=== PATIENT | male | born 1950 | race Caucasian/White ===

== ENCOUNTER 2019-04-18 10:50 | Inpatient (IN) | payer MEDICARE, OTHER ==
[~2019-04-18] VITALS: Ht 177.8 cm; Wt 97.8 kg
[2019-04-18] MEDS ORDERED: METO25 PO (11:34)
[2019-04-18] MEDS ORDERED: LEVE250T55 PO (11:34)
[2019-04-18] MEDS ORDERED: LEVO100 PO (11:34)
[2019-04-18] MEDS ORDERED: LACT30L PO (11:35)
[2019-04-18 12:35] LABS: MONOCYTES # (AUTO) 0.5 K/uL (0.1-1.0)
[2019-04-18 12:41] LABS: BASOPHILS % (AUTO) 0.9 % (0.0-2.0); HEMOGLOBIN 13.8 g/dL (13.5-17.5); LYMPHOCYTES # (AUTO) 1.1 K/uL (1.0-4.8); MEAN CORPUSCULAR HEMOGLOBIN 32.6 pg (26.0-34.0); MEAN CORPUSCULAR HGB CONC 34.5 G/dL (31.0-37.0); MEAN CORPUSCULAR VOLUME 94 fL (80-100); MONOCYTES % (AUTO) 9.6 % (2.0-9.0); NEUTROPHILS # (AUTO) 3.8 K/uL (1.8-7.7); NEUTROPHILS % (AUTO) 67.5 % (40.0-70.0); RED BLOOD CELL COUNT(AUTO) 4.24 MIL/uL (4.50-5.90); RED CELL DISTRIBUTION WIDTH 14.1 % (11.5-14.5)
[2019-04-18 12:43] LABS: ANION GAP 9 mmol/L (8-16); CALCIUM, TOTAL 9.2 mg/dL (8.8-10.5); CARBON DIOXIDE 28 mmol/L (22-29); CHLORIDE 109 mmol/L (98-107); CREATININE 0.71 mg/dL (0.60-1.30); GLOMERULAR FILTR. RATE CALC > 60 mL/min (>60); GLUCOSE,RANDOM 72 mg/dL (70-110); POTASSIUM 4.5 mmol/L (3.5-5.1); SODIUM SERUM 146 mmol/L (136-145); UREA NITROGEN, BLOOD 21 mg/dL (7-18)
[2019-04-18 12:49] LABS: ALANINE AMINOTRANSFERASE 29 U/L (12-78); ALBUMIN 3.5 g/dL (3.4-5.0); ALKALINE PHOSPHATASE 64 U/L (46-116); ASPARTATE AMINOTRANSFERASE 21 U/L (15-37); BILIRUBIN,TOTAL 0.5 mg/dL (0.1-1.0); CREATINE KINASE, TOTAL ONLY 55 U/L (39-308); TOTAL PROTEIN, SERUM 7.1 g/dL (6.4-8.2)
[2019-04-18 12:59] LABS: PLATELET COUNT (AUTO) 74 K/uL (150-450)
[2019-04-18 13:00] LABS: B-TYPE NATRIURETIC PEPTIDE 30 pg/mL (0-100)
[2019-04-18 13:03] LABS: PROTHROMBIN TIME 10.1 SEC (9.4-11.6)
[2019-04-18] MEDS ORDERED: 0.9% SODIUM CHLORIDE 10 ML SYRINGE IVP PRN (15:00)
[2019-04-18] MEDS ORDERED: ACETAMINOPHEN 325 MG TABLET PO PRN ×2 (15:00→15:30)
[2019-04-18] MEDS ORDERED: MAGNESIUM HYDROXIDE SUSPENSION 30 ML UDCUP PO PRN (15:30)
[2019-04-18] MEDS: ASPIRIN 81 MG CHEWABLE TABLET PO SCH (15:41)
[2019-04-18 16:01] LABS: THYROID STIMULATING HORMONE 0.37 uIU/mL (0.36-3.74)
[2019-04-18] MEDS: HEPARIN SODIUM,PORCINE 5,000 UNITS/ML VIAL SQ SCH (16:38)
[2019-04-18 18:39] LABS: APPEARANCE,URINE CLEAR (CLEAR); BILIRUBIN,URINE NEGATIVE (NEGATIVE); GLUCOSE, URINE (UA) NEGATIVE (NEGATIVE); KETONES,URINE TRACE mg/dL (NEGATIVE); LEUKOCYTE ESTERASE ,URINE NEGATIVE (NEGATIVE); NITRATE,URINE NEGATIVE (NEGATIVE); OCCULT BLOOD,URINE NEGATIVE (NEGATIVE); PH,URINE 6.5 (5.0-8.0); PROTEIN,URINE NEGATIVE (NEGATIVE)
[2019-04-18 18:44] LABS: AMPHET/METH SCREEN,URINE NEGATIVE (NEGATIVE); BARBITURATE SCREEN, URINE NEGATIVE (NEGATIVE); BENZODIAZEPINES SCREEN,URINE NEGATIVE (NEGATIVE); CANNABINOID SCREEN,URINE NEGATIVE (NEGATIVE); COCAINE SCREEN,URINE NEGATIVE (NEGATIVE); METHADONE SCREEN, URINE NEGATIVE (NEGATIVE); OPIATE SCREEN,URINE NEGATIVE (NEGATIVE)
[2019-04-18 18:46] LABS: PHENCYCLIDINE SCREEN,URINE NEGATIVE (NEGATIVE)
[2019-04-18 20:49] VITALS: BP 141/85
[2019-04-18] MEDS: DOCUSATE SODIUM 100 MG CAPSULE PO SCH (21:18)
[2019-04-18] MEDS: LevETIRAcetam 250 MG TABLET PO SCH (21:18)
[2019-04-18] MEDS: ATORVASTATIN CALCIUM 20 MG TABLET PO SCH (21:18)
[2019-04-18] MEDS: METOPROLOL TARTRATE 25 MG TABLET PO SCH (21:19)
[2019-04-18 23:30] VITALS: BP 134/77
[2019-04-19] MEDS: HEPARIN SODIUM,PORCINE 5,000 UNITS/ML VIAL SQ SCH ×4 (02:58→23:07)
[2019-04-19 04:59] VITALS: BP 117/66
[2019-04-19 07:08] LABS: BASOPHILS % (AUTO) 0.8 % (0.0-2.0); EOSINOPHILS % (AUTO) 2.1 % (1.0-6.0); HEMATOCRIT 36.3 % (41-53); HEMOGLOBIN 12.7 g/dL (13.5-17.5); LYMPHOCYTES # (AUTO) 1.1 K/uL (1.0-4.8); LYMPHOCYTES % (AUTO) 25.7 % (22.0-44.0); MEAN CORPUSCULAR HEMOGLOBIN 32.5 pg (26.0-34.0); MEAN CORPUSCULAR VOLUME 93 fL (80-100); MONOCYTES # (AUTO) 0.4 K/uL (0.1-1.0); MONOCYTES % (AUTO) 8.5 % (2.0-9.0); NEUTROPHILS # (AUTO) 2.7 K/uL (1.8-7.7); NEUTROPHILS % (AUTO) 62.9 % (40.0-70.0); PLATELET COUNT (AUTO) 70 K/uL (150-450); RED BLOOD CELL COUNT(AUTO) 3.91 MIL/uL (4.50-5.90); RED CELL DISTRIBUTION WIDTH 13.7 % (11.5-14.5)
[2019-04-19 07:23] LABS: ANION GAP 7 mmol/L (8-16); CARBON DIOXIDE 27 mmol/L (22-29); CHLORIDE 105 mmol/L (98-107); CREATININE 0.73 mg/dL (0.60-1.30); GLOMERULAR FILTR. RATE CALC > 60 mL/min (>60); GLUCOSE,RANDOM 92 mg/dL (70-110); POTASSIUM 4.3 mmol/L (3.5-5.1); SODIUM SERUM 139 mmol/L (136-145); UREA NITROGEN, BLOOD 17 mg/dL (7-18)
[2019-04-19 07:54] VITALS: BP 141/78
[2019-04-19] MEDS: ASPIRIN 81 MG CHEWABLE TABLET PO SCH (08:04)
[2019-04-19] MEDS: FAMOTIDINE 20 MG TABLET PO SCH (08:04)
[2019-04-19] MEDS: LevETIRAcetam 250 MG TABLET PO SCH ×2 (08:04→20:03)
[2019-04-19] MEDS: METOPROLOL TARTRATE 25 MG TABLET PO SCH ×2 (08:05→20:03)
[2019-04-19] MEDS: DOCUSATE SODIUM 100 MG CAPSULE PO SCH ×2 (08:05→20:02)
[2019-04-19 11:37] VITALS: BP 123/52
[2019-04-19 15:48] VITALS: BP 142/65
[2019-04-19] MEDS: ATORVASTATIN CALCIUM 20 MG TABLET PO SCH (20:03)
[2019-04-19 20:08] VITALS: BP 130/60
[2019-04-19 23:40] VITALS: BP 114/59
[2019-04-20 04:40] VITALS: BP 112/58
[2019-04-20 07:37] LABS: MAGNESIUM 1.7 mg/dL (1.80-2.40); PHOSPHORUS 3.6 mg/dL (2.5-4.9)
[2019-04-20] MEDS: LevETIRAcetam 250 MG TABLET PO SCH ×2 (07:51→20:59)
[2019-04-20] MEDS: MULTIVITAMINS WITH MINERALS, THERAPEUTIC TABLET PO SCH (07:51)
[2019-04-20] MEDS: ASPIRIN 81 MG CHEWABLE TABLET PO SCH (07:51)
[2019-04-20] MEDS: DOCUSATE SODIUM 100 MG CAPSULE PO SCH ×2 (07:52→20:59)
[2019-04-20] MEDS: METOPROLOL TARTRATE 25 MG TABLET PO SCH ×2 (07:52→20:59)
[2019-04-20] MEDS: HEPARIN SODIUM,PORCINE 5,000 UNITS/ML VIAL SQ SCH ×2 (07:52→15:56)
[2019-04-20] MEDS: FAMOTIDINE 20 MG TABLET PO SCH (07:52)
[2019-04-20 07:58] VITALS: BP 131/66
[2019-04-20 11:14] VITALS: BP 126/58
[2019-04-20] MEDS ORDERED: MAGNESIUM SULFATE 2 GM/WATER 50 ML IV ONE (15:00)
[2019-04-20 15:10] VITALS: BP 143/67
[2019-04-20] MEDS ORDERED: SODIUM CHLORIDE 0.9% 250 ML IV ONE (15:53)
[2019-04-20] MEDS: ATORVASTATIN CALCIUM 20 MG TABLET PO SCH (20:59)
[2019-04-20 23:28] VITALS: BP 132/68
[2019-04-21] MEDS: HEPARIN SODIUM,PORCINE 5,000 UNITS/ML VIAL SQ SCH ×3 (00:26→15:26)
[2019-04-21 00:35] VITALS: BP 132/70
[2019-04-21 04:17] VITALS: BP 136/75
[2019-04-21] MEDS: MULTIVITAMINS WITH MINERALS, THERAPEUTIC TABLET PO SCH (08:09)
[2019-04-21] MEDS: ASPIRIN 81 MG CHEWABLE TABLET PO SCH (08:09)
[2019-04-21] MEDS: METOPROLOL TARTRATE 25 MG TABLET PO SCH (08:09)
[2019-04-21] MEDS: LevETIRAcetam 250 MG TABLET PO SCH (08:09)
[2019-04-21] MEDS: DOCUSATE SODIUM 100 MG CAPSULE PO SCH (08:09)
[2019-04-21] MEDS: FAMOTIDINE 20 MG TABLET PO SCH (08:09)
[2019-04-21 11:29] VITALS: BP 114/57
[2019-04-21 15:31] VITALS: BP 125/65
== END 2019-04-21 20:00 | DRG 641 ==
LOC: EMS 10:53 → 6N 17:33
PROVIDERS: ADMIT Internal Medicine; ATTEND Internal Medicine
DX: R62.7 Adult failure to thrive (principal); I69.354 Hemiplegia and hemiparesis following cerebral infarction affecting left non-dominant side; E03.9 Hypothyroidism, unspecified; D69.6 Thrombocytopenia, unspecified; I25.10 Atherosclerotic heart disease of native coronary artery without angina pectoris; I10 Essential (primary) hypertension; Z89.612 Acquired absence of left leg above knee
CPT/HCPCS: 83735; 84100; 84443; 87081; 93005; 93306; 97163; 97530; G0480; J1644; J3475; J7050

== ENCOUNTER 2019-05-29 07:48 | Inpatient (IN) | payer MEDICARE, OTHER ==
[~2019-05-29] VITALS: Ht 177.8 cm; Wt 97.6 kg
[~2019-05-29 07:48] MED LIST: LACT30L PO; LEVE250T55 PO; LEVO100 PO; METO25 PO
[2019-05-29] MEDS ORDERED: SIMV-46 PO (07:59)
[2019-05-29 08:59] LABS: APPEARANCE,URINE CLEAR (CLEAR); BILIRUBIN,URINE NEGATIVE (NEGATIVE); GLUCOSE, URINE (UA) NEGATIVE (NEGATIVE); KETONES,URINE NEGATIVE (NEGATIVE); LEUKOCYTE ESTERASE ,URINE NEGATIVE (NEGATIVE); NITRATE,URINE NEGATIVE (NEGATIVE); OCCULT BLOOD,URINE NEGATIVE (NEGATIVE); PROTEIN,URINE NEGATIVE (NEGATIVE)
[2019-05-29 09:05] LABS: AMPHET/METH SCREEN,URINE NEGATIVE (NEGATIVE); BARBITURATE SCREEN, URINE NEGATIVE (NEGATIVE); BENZODIAZEPINES SCREEN,URINE NEGATIVE (NEGATIVE); CANNABINOID SCREEN,URINE NEGATIVE (NEGATIVE); COCAINE SCREEN,URINE NEGATIVE (NEGATIVE); METHADONE SCREEN, URINE NEGATIVE (NEGATIVE); OPIATE SCREEN,URINE NEGATIVE (NEGATIVE); PHENCYCLIDINE SCREEN,URINE NEGATIVE (NEGATIVE)
[2019-05-29 09:16] LABS: AMMONIA 19 umol/L (11-32)
[2019-05-29 09:17] LABS: TROPONIN I < 0.02 ng/mL (0.00-0.05)
[2019-05-29 09:19] LABS: BASOPHILS % (AUTO) 0.8 % (0.0-2.0); EOSINOPHILS % (AUTO) 1.9 % (1.0-6.0); HEMATOCRIT 38.4 % (41-53); HEMOGLOBIN 13.3 g/dL (13.5-17.5); LYMPHOCYTES # (AUTO) 1.5 K/uL (1.0-4.8); LYMPHOCYTES % (AUTO) 19.7 % (22.0-44.0); MEAN CORPUSCULAR HEMOGLOBIN 32.9 pg (26.0-34.0); MEAN CORPUSCULAR HGB CONC 34.5 G/dL (31.0-37.0); MEAN CORPUSCULAR VOLUME 95 fL (80-100); MONOCYTES # (AUTO) 0.6 K/uL (0.1-1.0); MONOCYTES % (AUTO) 8.2 % (2.0-9.0); NEUTROPHILS # (AUTO) 5.2 K/uL (1.8-7.7); NEUTROPHILS % (AUTO) 69.4 % (40.0-70.0); RED BLOOD CELL COUNT(AUTO) 4.03 MIL/uL (4.50-5.90); RED CELL DISTRIBUTION WIDTH 14.3 % (11.5-14.5)
[2019-05-29 09:24] LABS: ANION GAP 4 mmol/L (8-16); CALCIUM, TOTAL 9.3 mg/dL (8.8-10.5); CARBON DIOXIDE 27 mmol/L (22-29); CHLORIDE 107 mmol/L (98-107); CREATININE 0.86 mg/dL (0.60-1.30); GLOMERULAR FILTR. RATE CALC > 60 mL/min (>60); GLUCOSE,RANDOM 83 mg/dL (70-110); POTASSIUM 5.1 mmol/L (3.5-5.1); SODIUM SERUM 138 mmol/L (136-145); UREA NITROGEN, BLOOD 23 mg/dL (7-18)
[2019-05-29 09:31] LABS: PLATELET COUNT (AUTO) 90 K/uL (150-450)
[2019-05-29 09:32] LABS: ALANINE AMINOTRANSFERASE 32 U/L (12-78); ALBUMIN 3.6 g/dL (3.4-5.0); ALKALINE PHOSPHATASE 61 U/L (46-116); ASPARTATE AMINOTRANSFERASE 23 U/L (15-37); BILIRUBIN,TOTAL 0.4 mg/dL (0.1-1.0); LIPASE 306 U/L (73-393); TOTAL PROTEIN, SERUM 7.3 g/dL (6.4-8.2)
[2019-05-29 09:33] LABS: BACTERIA,URINE None Seen /HPF (None Seen); RBC,URINE None Seen /HPF (0-2); SQUAMOUS EPITHELIAL CELL,UR Few /LPF (None Seen); WBC,URINE 0-2 /HPF (0-5)
[2019-05-29 09:55] LABS: SALICYLATE 1.1 mg/dL (2.8-20.0)
[2019-05-29 12:39] LABS: ACETAMINOPHEN < 2 mcg/mL (10-30)
[2019-05-29] MEDS ORDERED: ACETAMINOPHEN 325 MG TABLET PO PRN (14:15)
[2019-05-29] MEDS ORDERED: 0.9% SODIUM CHLORIDE 10 ML SYRINGE IVP PRN (14:15)
[2019-05-29] MEDS ORDERED: ONDANSETRON HCL 4 MG/2 ML VIAL IVP PRN (14:15)
[2019-05-29 15:12] VITALS: BP 139/77
[2019-05-29 19:29] VITALS: BP 114/51
[2019-05-29 23:52] VITALS: BP 130/70
[2019-05-30 05:01] VITALS: BP 105/59
[2019-05-30 07:44] VITALS: BP 122/64
[2019-05-30] MEDS: DULoxetine HCL 20 MG CAPSULE PO SCH (08:35)
[2019-05-30] MEDS ORDERED: IPRATROPIUM BROMIDE 0.5 MG/2.5 ML NEB SOLUTION NEB PRN (09:30)
[2019-05-30] MEDS ORDERED: 0.9% SODIUM CHLORIDE 10 ML SYRINGE IVP PRN (09:30)
[2019-05-30] MEDS ORDERED: BISACODYL 10 MG RECTAL RECTAL SUPPOSITORY PR PRN (09:30)
[2019-05-30] MEDS ORDERED: ONDANSETRON HCL 4 MG/2 ML VIAL IVP PRN (09:30)
[2019-05-30] MEDS ORDERED: ALBUTEROL SULFATE 2.5 MG/0.5 ML NEB SOLUTION NEB PRN (09:30)
[2019-05-30] MEDS ORDERED: MAGNESIUM HYDROXIDE SUSPENSION 30 ML UDCUP PO PRN (09:30)
[2019-05-30] MEDS ORDERED: ACETAMINOPHEN 325 MG TABLET PO PRN (09:30)
[2019-05-30 09:59] LABS: BASOPHILS % (AUTO) 0.9 % (0.0-2.0); EOSINOPHILS % (AUTO) 2.3 % (1.0-6.0); HEMATOCRIT 39.5 % (41-53); HEMOGLOBIN 13.7 g/dL (13.5-17.5); LYMPHOCYTES # (AUTO) 1.1 K/uL (1.0-4.8); LYMPHOCYTES % (AUTO) 20.9 % (22.0-44.0); MEAN CORPUSCULAR HGB CONC 34.7 G/dL (31.0-37.0); MEAN CORPUSCULAR VOLUME 95 fL (80-100); MONOCYTES # (AUTO) 0.4 K/uL (0.1-1.0); MONOCYTES % (AUTO) 7.9 % (2.0-9.0); NEUTROPHILS # (AUTO) 3.7 K/uL (1.8-7.7); PLATELET COUNT (AUTO) 79 K/uL (150-450); RED BLOOD CELL COUNT(AUTO) 4.15 MIL/uL (4.50-5.90); RED CELL DISTRIBUTION WIDTH 14.6 % (11.5-14.5)
[2019-05-30 10:21] LABS: ANION GAP 6 mmol/L (8-16); CALCIUM, TOTAL 9.6 mg/dL (8.8-10.5); CARBON DIOXIDE 31 mmol/L (22-29); CHLORIDE 101 mmol/L (98-107); CREATININE 0.82 mg/dL (0.60-1.30); FREE T4 (FREE THYROXINE) 0.97 ng/dL (0.76-1.46); GLOMERULAR FILTR. RATE CALC > 60 mL/min (>60); GLUCOSE,RANDOM 122 mg/dL (70-110); POTASSIUM 4.1 mmol/L (3.5-5.1); SODIUM SERUM 138 mmol/L (136-145); THYROID STIMULATING HORMONE 5.55 uIU/mL (0.36-3.74); UREA NITROGEN, BLOOD 21 mg/dL (7-18)
[2019-05-30 11:25] VITALS: BP 135/69
[2019-05-30] MEDS: NYSTATIN 15 GM POWDER BOTTLE TP SCH ×2 (15:37→19:32)
[2019-05-30 16:10] VITALS: BP 126/62
[2019-05-30] MEDS: DOCUSATE SODIUM 100 MG CAPSULE PO SCH (19:22)
[2019-05-30] MEDS: LevETIRAcetam 250 MG TABLET PO SCH (19:31)
[2019-05-30] MEDS: METOPROLOL TARTRATE 25 MG TABLET PO SCH (19:31)
[2019-05-30 20:55] VITALS: BP 137/70
[2019-05-30 23:21] VITALS: BP 122/53
[2019-05-31 04:15] VITALS: BP 128/61
[2019-05-31 05:49] LABS: BASOPHILS % (AUTO) 0.8 % (0.0-2.0); EOSINOPHILS % (AUTO) 3.3 % (1.0-6.0); HEMATOCRIT 39.3 % (41-53); HEMOGLOBIN 13.5 g/dL (13.5-17.5); LYMPHOCYTES # (AUTO) 1.3 K/uL (1.0-4.8); LYMPHOCYTES % (AUTO) 21.5 % (22.0-44.0); MEAN CORPUSCULAR HEMOGLOBIN 32.7 pg (26.0-34.0); MEAN CORPUSCULAR HGB CONC 34.5 G/dL (31.0-37.0); MEAN CORPUSCULAR VOLUME 95 fL (80-100); MONOCYTES # (AUTO) 0.5 K/uL (0.1-1.0); MONOCYTES % (AUTO) 8.2 % (2.0-9.0); NEUTROPHILS # (AUTO) 4.1 K/uL (1.8-7.7); NEUTROPHILS % (AUTO) 66.2 % (40.0-70.0); PLATELET COUNT (AUTO) 89 K/uL (150-450); RED BLOOD CELL COUNT(AUTO) 4.14 MIL/uL (4.50-5.90); RED CELL DISTRIBUTION WIDTH 14.2 % (11.5-14.5)
[2019-05-31 05:55] LABS: ANION GAP 7 mmol/L (8-16); CALCIUM, TOTAL 9.4 mg/dL (8.8-10.5); CARBON DIOXIDE 29 mmol/L (22-29); CHLORIDE 102 mmol/L (98-107); CREATININE 0.79 mg/dL (0.60-1.30); GLOMERULAR FILTR. RATE CALC > 60 mL/min (>60); GLUCOSE,RANDOM 103 mg/dL (70-110); POTASSIUM 4.5 mmol/L (3.5-5.1); SODIUM SERUM 138 mmol/L (136-145); UREA NITROGEN, BLOOD 25 mg/dL (7-18)
[2019-05-31] MEDS: LEVOTHYROXINE SODIUM 100 MCG TABLET PO SCH (06:18)
[2019-05-31 08:19] VITALS: BP 134/72
[2019-05-31] MEDS: DOCUSATE SODIUM 100 MG CAPSULE PO SCH ×2 (09:00→20:59)
[2019-05-31] MEDS: NYSTATIN 15 GM POWDER BOTTLE TP SCH ×2 (09:53→20:59)
[2019-05-31] MEDS: DULoxetine HCL 20 MG CAPSULE PO SCH (09:53)
[2019-05-31] MEDS: LevETIRAcetam 250 MG TABLET PO SCH ×2 (09:53→20:59)
[2019-05-31] MEDS: SIMVASTATIN 40 MG TABLET PO SCH (09:53)
[2019-05-31] MEDS: METOPROLOL TARTRATE 25 MG TABLET PO SCH ×2 (09:53→20:59)
[2019-05-31] MEDS: PANTOPRAZOLE SODIUM 40 MG DR TABLET PO SCH (09:57)
[2019-05-31 11:45] VITALS: BP 112/66
[2019-05-31] MEDS ORDERED: DULO30CA2 PO (13:51)
[2019-05-31] MEDS ORDERED: NYST30CR9 TP (13:51)
[2019-05-31] MEDS ORDERED: PANT40TA25 PO (13:51)
[2019-05-31 15:40] VITALS: BP 129/50
[2019-05-31 20:23] VITALS: BP 127/63
[2019-05-31 23:18] VITALS: BP 117/66
[2019-06-01 04:51] VITALS: BP 134/67
[2019-06-01] MEDS: LEVOTHYROXINE SODIUM 100 MCG TABLET PO SCH (06:33)
[2019-06-01 08:04] VITALS: BP 126/65
[2019-06-01] MEDS ORDERED: DULoxetine HCL 30 MG CAPSULE PO SCH (09:00)
[2019-06-01] MEDS: PANTOPRAZOLE SODIUM 40 MG DR TABLET PO SCH (09:15)
[2019-06-01] MEDS: METOPROLOL TARTRATE 25 MG TABLET PO SCH (09:15)
[2019-06-01] MEDS: SIMVASTATIN 40 MG TABLET PO SCH (09:15)
[2019-06-01] MEDS: DOCUSATE SODIUM 100 MG CAPSULE PO SCH (09:16)
[2019-06-01] MEDS: LevETIRAcetam 250 MG TABLET PO SCH (09:16)
[2019-06-01] MEDS: NYSTATIN 15 GM POWDER BOTTLE TP SCH (09:16)
[2019-06-01 12:01] VITALS: BP 112/57
== END 2019-06-01 14:00 | DRG 918 ==
LOC: EMS 07:50 → 4E 12:56
PROVIDERS: ADMIT Internal Medicine; ATTEND Internal Medicine
DX: T50.902A Poisoning by unspecified drugs, medicaments and biological substances, intentional self-harm, initial encounter (principal); R45.851 Suicidal ideations; F32.9 Major depressive disorder, single episode, unspecified; Z86.73 Personal history of transient ischemic attack (TIA), and cerebral infarction without residual deficits; I10 Essential (primary) hypertension; E03.9 Hypothyroidism, unspecified; Z74.01 Bed confinement status; Y92.89 Other specified places as the place of occurrence of the external cause
CPT/HCPCS: 70450; 83036; 83735; 84439; 84443; 87081; 93005; 97110; 97162; 97166; 97530; 97535; 99291; G0378; G0480; G0481

== ENCOUNTER 2024-05-10 22:31 | Emergency (ER) | payer MEDICARE, OTHER ==
[~2024-05-10] VITALS: Ht 177.8 cm; Wt 90.5 kg
[~2024-05-10 22:31] MED LIST changes: +DULO-114 PO; +LACT10SO10 PO; -LACT30L PO; -LEVE250T55 PO; +LEVE250T81 PO; +NYST30CR9 TP; +PANT-31 PO; +SIMV-46 PO
[2024-05-11] MEDS ORDERED: HALOPERIDOL 5 MG TABLET PO PRN (02:15)
[2024-05-11] MEDS ORDERED: LORazepam 2 MG TABLET PO PRN (02:15)
[2024-05-11] MEDS ORDERED: ZOLPIDEM TARTRATE 10 MG TABLET PO PRN (02:15)
[2024-05-11] MEDS: ACETAMINOPHEN 325 MG TABLET PO ONE (05:50)
[2024-05-11 06:06] LABS: COVID AG,FIA SOURCE NASAL SWAB
[2024-05-11 06:28] LABS: SARS-COV2 (COVID) ANTIGEN,FIA Negative (Negative)
[2024-05-11 08:07] LABS: BASOPHILS % (AUTO) 0.9 % (0.0-2.0); EOSINOPHILS % (AUTO) 4.2 % (1.0-6.0); HEMATOCRIT 32.1 % (41-53); HEMOGLOBIN 10.1 g/dL (13.5-17.5); LYMPHOCYTES # (AUTO) 0.9 K/uL (1.0-4.8); LYMPHOCYTES % (AUTO) 21.7 % (22.0-44.0); MEAN CORPUSCULAR HEMOGLOBIN 26.2 pg (26.0-34.0); MEAN CORPUSCULAR HGB CONC 31.7 G/dL (31.0-37.0); MEAN CORPUSCULAR VOLUME 83 fL (80-100); MONOCYTES # (AUTO) 0.4 K/uL (0.1-1.0); MONOCYTES % (AUTO) 9.5 % (2.0-9.0); NEUTROPHILS # (AUTO) 2.5 K/uL (1.8-7.7); NEUTROPHILS % (AUTO) 63.7 % (40.0-70.0); PLATELET COUNT (AUTO) 102 K/uL (150-450); RED BLOOD CELL COUNT(AUTO) 3.87 MIL/uL (4.50-5.90); RED CELL DISTRIBUTION WIDTH 18.8 % (11.5-14.5)
[2024-05-11 08:17] LABS: ANION GAP 8 mmol/L (8-16); CALCIUM, TOTAL 8.8 mg/dL (8.8-10.5); CARBON DIOXIDE 26 mmol/L (22-29); CHLORIDE 107 mmol/L (98-107); CREATININE 0.81 mg/dL (0.60-1.30); GLOMERULAR FILTR. RATE CALC > 60 mL/min (>60); GLUCOSE,RANDOM 104 mg/dL (70-110); POTASSIUM 3.8 mmol/L (3.5-5.1); SODIUM SERUM 141 mmol/L (136-145); UREA NITROGEN, BLOOD 14 mg/dL (7-18)
[2024-05-11 08:46] LABS: ALCOHOL, BLOOD (SERUM) < 3 mg/dL (0-10)
[2024-05-11 12:01] LABS: APPEARANCE,URINE CLEAR (CLEAR); BILIRUBIN,URINE NEGATIVE (NEGATIVE); COLOR,URINE YELLOW (YELLOW); GLUCOSE, URINE (UA) 300-500 mg/dL (NEGATIVE); KETONES,URINE TRACE mg/dL (NEGATIVE); LEUKOCYTE ESTERASE ,URINE NEGATIVE (NEGATIVE); NITRATE,URINE NEGATIVE (NEGATIVE); OCCULT BLOOD,URINE NEGATIVE (NEGATIVE); PH,URINE 5.5 (5.0-8.0); PH,URINE DRUG SCREEN 5.5 (5.0-8.0); PROTEIN,URINE 30-70 mg/dL (NEGATIVE); SPECIFIC GRAVITIY, URINE 1.035 (1.003-1.030)
[2024-05-11 12:09] LABS: ALCOHOL, URINE DRUG SCREEN NEGATIVE (NEGATIVE); AMPHET/METH SCREEN,URINE NEGATIVE (NEGATIVE); BARBITURATE SCREEN, URINE NEGATIVE (NEGATIVE); BENZODIAZEPINES SCREEN,URINE NEGATIVE (NEGATIVE); CANNABINOID SCREEN,URINE NEGATIVE (NEGATIVE); COCAINE SCREEN,URINE NEGATIVE (NEGATIVE); METHADONE SCREEN, URINE NEGATIVE (NEGATIVE); OPIATE SCREEN,URINE NEGATIVE (NEGATIVE); PHENCYCLIDINE SCREEN,URINE NEGATIVE (NEGATIVE)
[2024-05-11 12:10] LABS: BACTERIA,URINE None Seen /HPF (None Seen); RBC,URINE 0-2 /HPF (0-2); WBC,URINE None Seen /HPF (0-5)
[2024-05-12] MEDS ORDERED: SERT-439 PO (17:57)
[2024-05-12] MEDS ORDERED: BUSP10TA23 PO (17:57)
[2024-05-12] MEDS ORDERED: IPRA4AER IH (17:57)
[2024-05-12] MEDS ORDERED: EMPA10TA3 PO (17:57)
[2024-05-12] MEDS ORDERED: CARV3.1231 PO (17:57)
[2024-05-12] MEDS ORDERED: LEVO137T2 PO (17:57)
[2024-05-12] MEDS ORDERED: LEVE750T10 PO (17:57)
[2024-05-12] MEDS ORDERED: RIVA20TA PO (17:57)
[2024-05-12] MEDS ORDERED: LACT10SO85 PO (17:57)
[2024-05-12] MEDS ORDERED: TRAZ-252 PO (17:57)
[2024-05-12] MEDS ORDERED: FURO20TA4 PO (17:57)
[2024-05-12] MEDS ORDERED: SPIR50TA27 PO (17:57)
[2024-05-12] MEDS ORDERED: GABA-1181 PO (17:57)
[2024-05-12] MEDS ORDERED: AMLO5TAB66 PO (17:57)
[2024-05-12] MEDS ORDERED: ATOR20TA65 PO (17:57)
[2024-05-12 18:01] VITALS: TEMP 98.4
[2024-05-12] MEDS: GABAPENTIN 300 MG CAPSULE PO ONE (19:09)
[2024-05-12] MEDS: BusPIRone HCL 10 MG TABLET PO ONE (19:09)
[2024-05-12] MEDS: LevETIRAcetam 250 MG TABLET PO ONE (19:09)
[2024-05-12] MEDS: DiphenhydrAMINE HCL 50 MG/ML VIAL IM ONE (21:40)
[2024-05-12] MEDS: LORazepam 2 MG/ML VIAL IM ONE (21:41)
[2024-05-12] MEDS: HALOPERIDOL LACTATE 5 MG/ML VIAL IM ONE (21:41)
[2024-05-13 11:11] VITALS: BP 119/66; PULSE 79; RESP 18; O2SAT 99
[2024-05-13] MEDS: RIVAROXABAN 10 MG TABLET PO ONE (11:15)
[2024-05-13] MEDS: LEVOTHYROXINE SODIUM 137 MCG TABLET PO ONE (11:15)
[2024-05-13] MEDS: BusPIRone HCL 10 MG TABLET PO ONE (11:15)
[2024-05-13] MEDS: GABAPENTIN 300 MG CAPSULE PO ONE (11:15)
[2024-05-13] MEDS: LevETIRAcetam 250 MG TABLET PO ONE (11:16)
[2024-05-13] MEDS: EMPAGLIFLOZIN 10 MG TABLET PO ONE (11:16)
[2024-05-13] MEDS: CARVEDILOL 3.125 MG TABLET PO ONE (11:16)
[2024-05-13] MEDS: AmLODIPine BESYLATE 5 MG TABLET PO ONE (11:16)
== END 2024-05-13 13:04 ==
LOC: EMS 22:31
DX: F32.9 Major depressive disorder, single episode, unspecified (principal); E03.9 Hypothyroidism, unspecified; F41.9 Anxiety disorder, unspecified; I11.0 Hypertensive heart disease with heart failure; Z79.899 Other long term (current) drug therapy; Z86.73 Personal history of transient ischemic attack (TIA), and cerebral infarction without residual deficits; Z89.612 Acquired absence of left leg above knee; Z20.822 Contact with and (suspected) exposure to COVID-19
CPT/HCPCS: 99285; 87426; 80048; 81001; 85025; 36415; 80307; 96372; G0480; J1200; J1630; J2060